=== PATIENT | female | born 1960 | race Caucasian/White ===

== ENCOUNTER 2019-09-05 20:31 | Emergency (ER) | payer OTHER, SELFPAY ==
--- NOTE | ~2019-09-05 | CT_ITS ---
EXAMINATION: CT abdomen pelvis w con EXAM DATE: 09/05/2019 22:07 INDICATION: Abdominal pain. Nausea and diarrhea. TECHNIQUE: Spiral CT of the abdomen and pelvis was performed following intravenous injection of 100 m L Omnipaque 350. Axial, coronal and sagittal images were reviewed. The dose-length product (DLP) fo r this examination was 757.26 mGy-cm. The exposure was tailored according to patient size (auto mA e xposure control), and iterative reconstruction (ASIR) was used as additional dose reduction technique . There is no prior study for comparison. FINDINGS: The liver, spleen, adrenal glands and pancreas are unremarkable. There are cholecystectomy clips. Portal and splenic veins are patent. Kidneys enhance symmetrically. There is no hydronephr osis. There is a 4 mm left inferior calyceal stone. Calcifications in the pelvis are believed to be p hleboliths. The uterus is not identified and has likely been surgically resected. The bladder is u nremarkable. There is no retroperitoneal or pelvic lymphadenopathy. There is mild scattered arteri osclerotic disease. The appendix is not positively visualized. There is no pericecal inflammatory change to suggest appe ndicitis. The stomach and small bowel are unremarkable. There is colonic fluid, correlate for diar jewell. No free intraperitoneal gas. The heart is normal in size. There are no pericardial or pleu ral effusions. Linear bibasilar opacities consistent with atelectasis. There are no osteoblastic or osteolytic lesions identified. IMPRESSION: 1. Colonic fluid, correlate for diarrhea. Consider gastroenteritis. 2. Small left nephrolithiasis. Reviewed, dictated and finalized at location A.
[2019-09-05 20:36] VITALS: BP 142/82; PULSE 69; RESP 16; TEMP 36.7; O2SAT 96
--- NOTE | 2019-09-05 20:53 | ED.ABDPAIN ---
HPI - Abdominal Pain General Chief Complaint: Abdominal Pain Stated Complaint: upper body pain Time Seen by Provider: 09/05/19 20:41 Source: patient and RN notes reviewed Mode of arrival: ambulatory Limitations: no limitations History of Present Illness HPI narrative: Pt is a 58 y/o female who presents to the ED with c/o intermittent diffuse ABD pain starting roughly 2 weeks ago. She notes that her pain has been aggravated at night. Pt states that her pain isn't necessarily worsened after eating. She also reports nausea, diarrhea, and mild chest pain, but denies any fever, vomiting, or SOB. Pt states that she hasn't taken any pain medications today. MD elicited complaint: abdominal pain Onset (ago): week(s) (2) Pain Consistency: intermittent Location: diffuse Associated symptoms: nausea, diarrhea and other (mild chest pain) Treatments prior to arrival: other (none) Related Data Home Medications Medication Instructions Recorded Confirmed Antihistamine PRN 09/05/19 acetaminophen [Tylenol Extra QPM PRN 09/05/19 Strength] buspirone 15 mg PO BID PRN 09/05/19 duloxetine 30 mg PO DAILY 09/05/19 duloxetine 60 mg PO QPM 09/05/19 gabapentin 400 mg PO TID 09/05/19 magnesium 250 mg PO DAILY 09/05/19 topiramate 50 mg PO BID 09/05/19 Allergies Allergy/AdvReac Type Severity Reaction Status Date / Time Penicillins Allergy Hives Verified 09/05/19 20:56 acetaminophen [From Vicodin] AdvReac Nausea Verified 09/05/19 20:56 aspirin AdvReac Headache Verified 09/05/19 20:56 [From Excedrin Migraine] caffeine AdvReac Headache Verified 09/05/19 20:56 [From Excedrin Migraine] codeine AdvReac Nausea and Verified 09/05/19 20:56 Vomiting fluoxetine [From Prozac] AdvReac Other Verified 09/05/19 20:56 hydrocodone [From Vicodin] AdvReac Nausea Verified 09/05/19 20:56 naproxen [From Aleve] AdvReac Headache Verified 09/05/19 20:56 tramadol AdvReac Nausea and Verified 09/05/19 20:56 Vomiting zolpidem [From Ambien] AdvReac Nausea and Verified 09/05/19 20:56 Vomiting Review of Systems Review of Systems: All systems reviewed & are unremarkable except as noted in HPI and below Constitutional: Constitutional: Denies fever(s) Cardiovascular: Cardiovascular: Reports chest pain (mild) Respiratory: Respiratory: Denies dyspnea Gastrointestinal: Gastrointestinal: Reports abdominal pain (diffuse ABD pain), Reports diarrhea, Reports nausea and Denies vomiting PMFSH Past Medical History Medical History Medical history unknown Surgical History Surgical History Surgical history unknown Social History Social History Smoking status: Never smoker Exam Narrative: Exam Narrative: APPEARANCE: No acute distress, nontoxic, resting in bed HEENT: Normocephalic, atraumatic, OMM RESPIRATORY: No respiratory distress, clear to auscultation bilaterally with no rhonchi wheezing or rales CARDIOVASCULAR: RRR s murmur ABDOMINAL: Soft, nondistended, diffusely tender to palpation, no rebound or guarding MUSCULOSKELETAl: Moves all extremities. No clubbing, cyanosis or edema. NEURO: Awake and alert. Following commands, speech normal, no focal deficits SKIN:: Warm, dry. Normal Color PSYCHIATRIC: Normal affect/mood Course Course Emergency Course: Patient states pain is improved with IV Tylenol and resolved with Bentyl Patient states that they are feeling much better at this time. States abdominal pain has resolved. Repeat abdominal exam shows the patient's abdomen to be soft and nontender. Discussed with patient results of workup and diagnosis. Discussed need for follow-up with primary care physician, reasons to return to the emergency department in proper use of medication. Patient understands and agrees to current treatment plan Vital Signs Vital signs: Vital Signs Temperature 98
[2019-09-05] MEDS: SODIUM CHLORIDE 0.9% IV 1,000 ML 999 ML IV CONT (21:11)
[2019-09-05] MEDS: ONDANSETRON INJ 4 MG/2 ML VIAL IV PUSH (21:11)
[2019-09-05 21:15] LABS: Basophils Absolute Auto 0.1 K/mm3 (0.0-0.1); Eosinophils Absolute Auto 1.1 K/mm3 (0-0.3); Eosinophils Percent Auto 9.9 % (0-4.4); Hematocrit 45.4 % (37.0-47.0); Hemoglobin 14.8 g/dL (12.0-15.0); Immature Granulocyte Absolute 0.04 K/mm3 (0.00-0.031); Immature Granulocyte Percent A 0.3 % (0-0.5); Lymphocytes Absolute Auto 3.95 K/mm3 (0.9-3.2); Lymphocytes Percent Auto 34.3 % (18.3-44.2); Mean Corpuscular HGB Conc 32.6 g/dl (32-36); Monocytes Absolute Auto 0.7 K/mm3 (0.1-0.6); Monocytes Percent Auto 6.2 % (2.6-8.5); Neutrophils Absolute Auto 5.6 K/mm3 (1.3-6.7); Neutrophils Percent Auto 48.3 % (45.5-73.1); Platelet Count Result 306 k/mm3 (150-375); Red Blood Count 4.78 M/mm3 (4.2-5.4); Red Cell Distribution Width 12.7 % (11.5-14.5); White Blood Count 11.5 K/mm3 (4.5-10.0)
[2019-09-05 21:27] LABS: INR 0.9; Prothrombin Time 11.9 Seconds (11.1-14.7)
[2019-09-05 21:28] LABS: Partial Thromboplastin Time 28.7 SECONDS (22.3-36.8)
[2019-09-05 21:42] LABS: Troponin I < 0.012 ng/mL (0.000-0.034)
[2019-09-05 21:46] LABS: Potassium 3.7 mmol/L (3.4-5.0)
[2019-09-05 21:49] LABS: Alanine Aminotransferase 21 U/L (4-35); Albumin Level 3.6 g/dL (3.5-5.1); Alkaline Phosphatase 91 U/L (38-126); Aspartate Amino Transferase 22 U/L (14-36); Bilirubin,Total 0.2 mg/dL (0.2-1.3); Blood Urea Nitrogen 17 mg/dL (7-17); Calcium 9.2 mg/dL (8.4-10.2); Carbon Dioxide 25 mmol/L (22-30); Chloride 109 mmol/L (98-107); Estimated Glomerular Filt Rate > 60; Glucose 113 mg/dL (65-105); Lipase 183 U/L (23-300); Sodium 138 mmol/L (137-145)
[2019-09-05] MEDS: DICYCLOMINE HCL INJ 20 MG/2 ML VIAL IM (22:26)
--- NOTE | 2019-09-05 22:34 | ECG_ITS ---
Measurements Intervals Centre Rate: 71 P: 32 NV: 174 QRS: -4 QRSD: 156 T: 27 QT: 434 QTc: 472 Interpretive Statements SINUS RHYTHM LEFT BUNDLE BRANCH BLOCK BASELINE WANDER- V6 ABNORMAL ECG Electronically Signed On 09-06-2019 6:59:44 CDT by Cristi Jane D.O.
[2019-09-05 22:53] VITALS: BP 117/69; PULSE 64; RESP 20; O2SAT 96
[2019-09-05 23:20] LABS: Add Urine Microscopic? NO; Appearance Urine Clear (Clear); Bacteria Urine Trace /hpf; Bilirubin Urine Negative (Negative); Blood Urine Negative (Negative); Color Urine Straw (Yellow); Glucose Urine UA Negative (Negative); Ketones Urine Negative (Negative); Leukocyte Esterase Ur Negative LEU/UL (Negative); Mucus Urine Rare /lpf; Nitrate Urine Negative (Negative); Protein Urine Negative (Negative); RBC Urine 0-2 /hpf (0-2); Squamous Epithelial Cell Urine Many /hpf (Few); Urobilinogen Urine Negative mg/dL (<2.0)
[2019-09-05 23:43] VITALS: BP 117/72; PULSE 63; RESP 18; TEMP 36.8; O2SAT 98
== END 2019-09-05 23:45 | disposition home or self-care (01) ==
PROVIDERS: Emergency Provider Emergency Medicine; PCP Physician Assistant
DX: R10.9 Unspecified abdominal pain (principal); N20.0 Calculus of kidney; I44.7 Left bundle-branch block, unspecified
CPT/HCPCS: 36415; 74177; 80053; 81003; 83690; 84484; 85025; 85610; 85730; 87077; 87086; 87088; 87186; 93005; 96361; 96365; 96372; 96375; 99284; J0131; J0500; J2405; J7030; Q9967